=== PATIENT | female | born 1960 | race Hispanic/Latino ===

== ENCOUNTER 2017-06-04 14:10 | Observation (INO) | payer SELFPAY ==
[~2017-06-04] VITALS: Ht 157.5 cm; Wt 96.2 kg
[2017-06-04 15:00] LABS: HEMATOCRIT 40.5 % (36.0-46.0); HEMOGLOBIN 13.8 G/DL (11.9-15.5); MCH 28.8 PG (29.0-34.0); MCHC 34.1 G/DL (30.0-36.0); MCV 84.6 FL (83-99); PLATELET COUNT 196 K/uL (156-360); RBC DIS.WIDTH-CV 12.9 % (11.8-14.6); RBC DIS.WIDTH-SD 39.4 % (39-53); RED BLOOD COUNT 4.79 M/uL (3.80-5.20); WHITE BLOOD COUNT 7.1 K/uL (4.1-10.2)
[2017-06-04 15:11] LABS: CHLORIDE 106 mEq/L (99-109); SODIUM 141 mEq/L (136-147)
[2017-06-04 15:13] LABS: GLUCOSE 133 mg/dL (70-99)
[2017-06-04 15:16] LABS: CREATININE 0.9 mg/dL (0.6-1.3); GFR ESTIMATE (CALCULATED) > 59 mL/min/
[2017-06-04 15:17] LABS: UREA NITROGEN (BUN) 13 mg/dL (9-23)
[2017-06-04 15:22] LABS: TROP-I INTERPRETATION NEGATIVE; TROPONIN-I < 0.01 ng/mL (0.0-0.30)
[2017-06-04 17:47] LABS: TROP-I INTERPRETATION NEGATIVE; TROPONIN-I < 0.01 ng/mL (0.0-0.30)
[2017-06-04] MEDS ORDERED: TYLENOL EXTRA500 MG PO (19:01)
[2017-06-04 20:25] LABS: D-DIMER ELISA < 150.00 ng/mLDDU (<230)
[2017-06-04 20:26] LABS: HDL CHOLESTEROL 37 MG/DL (Desirable>=50); LDL CHOLESTEROL 150 mg/dL (Desirable<100); NON-HDL CHOLESTEROL 189 mg/dL (Desirable<160); TOTAL CHOLESTEROL 226 mg/dL (Desirable<200); TRIGLYCERIDES 193 MG/DL (Normal: <150)
[2017-06-04 21:02] VITALS: BP 165/88
[2017-06-04 21:58] LABS: TROP-I INTERPRETATION NEGATIVE; TROPONIN-I < 0.01 ng/mL (0.0-0.30)
[2017-06-05 00:29] VITALS: BP 127/66
[2017-06-05 05:13] VITALS: BP 130/68
[2017-06-05 07:19] LABS: ALBUMIN 3.8 G/DL (3.2-4.8); ALKALINE PHOSPHATASE 69 IU/L (3-129); ALT (GPT) 16 IU/L (3-49); AST (GOT) 16 IU/L (2-34); CHLORIDE 107 MEQ/L (99-109); CREATININE 0.8 MG/DL (0.6-1.3); GFR ESTIMATE (CALCULATED) > 59 mL/min/; GLUCOSE 125 mg/dL (70-99); SODIUM 143 MEQ/L (136-147); TOTAL BILIRUBIN 0.6 MG/DL (0.0-1.0); TOTAL PROTEIN 6.6 G/DL (6.4-8.3); UREA NITROGEN (BUN) 16 mg/dL (9-23)
[2017-06-05 09:38] LABS: HEMOGLOBIN A1c (GLYCOHEMOGLOB) 7.3 % (Below 5.7)
[2017-06-05 12:18] VITALS: BP 135/78
== END 2017-06-05 14:28 | disposition home or self-care (01) ==
LOC: EME 14:10 → EDOF 18:38 → 5WEST 18:38 → ENRESERV 18:41 → 5WEST 20:55 → ENPENDDIS 06-05 → 5WEST 06-05 14:28
PROVIDERS: Emergency Medicine; Hospitalist
DX: R07.9 Chest pain, unspecified (principal); M79.602 Pain in left arm; R73.9 Hyperglycemia, unspecified; E66.9 Obesity, unspecified; Z68.38 Body mass index [BMI] 38.0-38.9, adult; R20.0 Anesthesia of skin; Z82.49 Family history of ischemic heart disease and other diseases of the circulatory system; Z83.3 Family history of diabetes mellitus
CPT/HCPCS: 71046; 80048; 80053; 80061; 83036; 84484; 85027; 85379; 93005; 99281; 99285; G0378; J1650